=== PATIENT | female | born 1960 | race African-American/Black ===

== ENCOUNTER 2017-05-24 18:22 | Inpatient (IN) | payer OTHER ==
[~2017-05-24] VITALS: Ht 172.7 cm; Wt 83.0 kg
[~2017-05-24 18:22] MED LIST: METF850T OR; Z.0.NO CURRENT MEDS; lancets; test strips
[2017-05-24 18:25] VITALS: BP 134/83; PULSE 101; RESP 16; TEMP 98.5; O2SAT 97
[2017-05-24 19:15] VITALS: BP_SYST 112; BP_SYST 121; BP_DIAS 67; BP_DIAS 79; RESP 16; RESP 18
[2017-05-24] MEDS ORDERED: SODIUM CHLOR 0.9% 1000 ML INJ 1,000 ML IV ONE (19:22)
[2017-05-24] MEDS ORDERED: ONDANSETRON HCL 4 MG/2 ML VIAL IVP ONE (19:30)
[2017-05-24] MEDS ORDERED: SODIUM CHLORIDE 0.9% FLUSH 10 ML FLUSH IVF PRN (19:30)
[2017-05-24 19:47] VITALS: BP_SYST 111; BP_SYST 112; BP_SYST 137; BP_DIAS 65; BP_DIAS 73; BP_DIAS 79; PULSE 83; RESP 16; O2SAT 100
--- NOTE | 2017-05-24 20:09 | RADRPT ---
EXAM DATE/TIME: 05/24/2017 19:39 [facility] COMPARISON: No previous studies available for comparison. INDICATIONS : Dizziness and weakness. RADIATION DOSE: 56.35 CTDIvol (mGy) MEDICAL HISTORY : None SURGICAL HISTORY : Tubal ligation. ENCOUNTER: Initial ACUITY: 1 day PAIN SCALE: 0/10 LOCATION: cranial TECHNIQUE: Multiple contiguous axial images were obtained of the head. Using automated exposure control and adj ustment of the mA and/or kV according to patient size, radiation dose was kept as low as reasonably a chievable to obtain optimal diagnostic quality images. DICOM format image data is available electro nically for review and comparison. FINDINGS: CEREBRUM: The ventricles are normal for age. No evidence of midline shift, mass lesion, hemorrhage or acute in farction. No extra-axial fluid collections are seen. POSTERIOR FOSSA: The cerebellum and brainstem are intact. The 4th ventricle is midline. The cerebellopontine angle i s unremarkable. EXTRACRANIAL: The visualized portion of the orbits is intact. SKULL: The calvaria is intact. No evidence of skull fracture. CONCLUSION: No acute intracranial abnormality is identified. Cali Ho MD on May 24, 2017 at 20:06 Board Certified Radiologist. This report was verified electronically.
--- NOTE | 2017-05-24 20:23 | RADRPT ---
EXAM DATE/TIME: 05/24/2017 20:00 [facility] COMPARISON: No previous studies available for comparison. INDICATIONS : Chest discomfort. Weakness. MEDICAL HISTORY : None. SURGICAL HISTORY : None. ENCOUNTER: Initial ACUITY: 1 day PAIN SCORE: 6/10 LOCATION: Bilateral chest FINDINGS: Portable AP view of the chest demonstrates a normal-sized cardiac silhouette. There is marked underin flation with atelectasis at the lung bases. No pleural effusion or pneumothorax is identified. Bones and soft tissues demonstrate no acute finding. EKG lines overlie the patient. CONCLUSION: Marked underinflation with atelectasis at the bases. Otherwise, no acute finding is identified given the technique. Cali Ho MD on May 24, 2017 at 20:21 Board Certified Radiologist. This report was verified electronically.
[2017-05-24 20:26] LABS: AUTOMATED NEUTROPHIL # 3.9 TH/MM3 (1.8-7.7); BASOPHIL % 0.5 % (0.0-2.0); HEMATOCRIT 45.7 % (35.0-46.0); HEMOGLOBIN 14.7 GM/DL (11.6-15.3); LYMPH % 15.6 % (9.0-44.0); LYMPHOCYTE # 0.9 TH/MM3 (1.0-4.8); MEAN CELL VOLUME 92.6 FL (80.0-100.0); MEAN CORPUSCULAR HEMOGLOBIN 29.7 PG (27.0-34.0); MEAN CORPUSCULAR HGB CONC 32.1 % (32.0-36.0); MEAN PLATELET VOLUME 9.7 FL (7.0-11.0); MONO % 12.4 % (0.0-8.0); MONOCYTE # 0.7 TH/MM3 (0-0.9); NEUT % 71.5 % (16.0-70.0); PLATELET COUNT 279 TH/MM3 (150-450); RED BLOOD COUNT 4.94 MIL/MM3 (4.00-5.30); RED CELL DISTRIBUTION WIDTH 13.8 % (11.6-17.2); WHITE BLOOD COUNT 5.5 TH/MM3 (4.0-11.0)
[2017-05-24 20:45] LABS: PROTHROMBIN TIME - PATIENT 9.8 SEC (9.8-11.6)
--- NOTE | 2017-05-24 20:45 | PD ---
HPI Chief Complaint: General Weakness Time Seen by Provider: 18:44 Travel History International Travel<30 days: No Contact w/Intl Traveler<30days: No Traveled to known affect area: No History of Present Illness HPI 56 YO F with PMH of DMT2 presents to the ED for evaluation of episodic weakness of the right hand, gait disturbance and dizziness throughout the course of the day. No alleviating or exacerbating factors reported. Patient denies headache , vision changes, chest pain, palpitations, shortness of breath, abdominal pain , nausea, vomiting, dysuria. She states that she is no longer taking medications for diabetes as she lost 25 pounds and last A1c was normal. She states that she is no longer checking her blood sugars. PFSH Past Medical History Anemia: Yes Ectopic : Yes (1995) Tubal Ligation: Yes Past Surgical History Section: Yes (X3: 1984, 1985, 1993) Gynecologic Surgery: Yes (TUBAL REANASTOMOSIS: 1993) Social History Alcohol Use: No Tobacco Use: No Substance Use: No Allergies-Medications (Allergen,Severity, Reaction): Coded Allergies: clindamycin (Verified Allergy, Intermediate, Rash, 05/24/17) Reported Meds & Prescriptions Reported Meds & Active Scripts Active Review of Systems Except as stated in HPI: all other systems reviewed are Neg Physical Exam Narrative GENERAL: Well-nourished, well-developed female no acute distress. SKIN: Focused skin assessment warm/dry. HEAD: Normocephalic. EYES: No scleral icterus. No injection or drainage. NECK: Supple, trachea midline. No JVD or lymphadenopathy. CARDIOVASCULAR: Regular rate and rhythm without murmurs, gallops, or rubs. RESPIRATORY: Breath sounds equal bilaterally. No accessory muscle use. GASTROINTESTINAL: Abdomen soft, non-tender, nondistended. MUSCULOSKELETAL: No cyanosis, or edema. NEUROLOGICAL: Awake and alert. Cranial nerves II through XII intact. Motor and sensory grossly within normal limits. Five out of 5 muscle strength in all muscle groups. Normal speech. BACK: Nontender without obvious deformity. No CVA tenderness. Data Data Last Documented VS Vital Signs Date Time Temp Pulse Resp B/P (MAP) Pulse Ox O2 Delivery O2 Flow Rate FiO2 05/24/17 22:59 85 16 126/70 (88) 98 Room Air 05/24/17 18:25 98.5 Orders Orders Electrocardiogram (05/24/17 19:22) Complete Blood Count With Diff (05/24/17 19:22) Comprehensive Metabolic Panel (05/24/17 19:22) Magnesium (Mg) (05/24/17 19:22) Ckmb (Isoenzyme) Profile (05/24/17 19:22) Troponin I (05/24/17 19:22) Act Partial Throm Time (Ptt) (05/24/17:22) Prothrombin Time / Inr (Pt) (05/24/17:22) Urinalysis - C+S If Indicated (05/24/17 19:22) Chest, Single Ap (05/24/17 19:22) Ct Brain W/O Iv Contrast(Rout) (05/24/17:22) Ecg Monitoring (05/24/17:22) Iv Access Insert/Monitor (05/24/17:22) Oximetry (05/24/17:22) Ondansetron Inj (Zofran Inj) (05/24/17 19:30) Sodium Chloride 0.9% Flush (Ns Flush) (05/24/17 19:30) Sodium Chlor 0.9% 1000 Ml Inj (Ns 1000 M (05/24/17 19:22) Thyroid Stimulating Hormone (05/24/17 19:22) Orthostatic Vital Signs (05/24/17 19:22) Blood Glucose (05/24/17 21:42) CKMB (05/24/17 21:30) CKMB% (05/24/17 21:30) Insulin Human Regular Inj (Novolin R Inj (05/24/17 22:45) Admit Order (Ed Use Only) (05/24/17 23:22) Labs Laboratory Tests Test 05/24/17 19:53 05/24/17 21:30 05/24/17 22:55 White Blood Count 5.5 TH/MM3 Red Blood Count 4.94 MIL/MM3 Hemoglobin 14.7 GM/DL Hematocrit 45.7 % Mean Corpuscular Volume 92.6 FL Mean Corpuscular Hemoglobin 29.7 PG Mean Corpuscular Hemoglobin Concent 32.1 % Red Cell Distribution Width 13.8 % Platelet Count 279 TH/MM3 Mean Platelet Volume 9.7 FL Neutrophils (%) (Auto) 71.5 % Lymphocytes (%) (Auto) 15.6 % Monocytes (%) (Auto) 12.4 % Eosinophils (%) (Auto) 0.0 % Basophils (%) (Auto) 0.5 % Neutrophils # (Auto) 3.9 TH/MM3 Lymphocytes # (Auto) 0.9 TH/MM3 Monocytes # (Auto) 0.7 TH/MM3 Eosinophils # (Auto) 0.0 TH/MM3 Basophils # (Auto) 0.0 TH/MM3 CBC Comment DIFF FINAL Differential Comment Prothrombin Time 9.8 SEC Prothromb Time International Ratio 1.0 RATIO Activated Partial Thromboplast Time 19.5 SEC Blood Urea Nitrogen 17 MG/DL Creatinine 1.26 MG/DL Random Glucose 624 MG/DL Total Protein 9.1 GM/DL Albumin 4.2 GM/DL Calcium Level 10.7 MG/DL Magnesium Level 2.2 MG/DL Alkaline Phosphatase 178 U/L Aspartate Amino Transf (AST/SGOT) 15 U/L Alanine Aminotransferase (ALT/SGPT) 21 U/L Total Bilirubin 0.3 MG/DL Sodium Level 138 MEQ/L Potassium Level 4.5 MEQ/L Chloride Level 101 MEQ/L Carbon Dioxide Level 29.4 MEQ/L Anion Gap 8 MEQ/L Estimat Glomerular Filtration Rate 53 ML/MIN Total Creatine Kinase 177 U/L Creatine Kinase MB 1.6 NG/ML Troponin I LESS THAN 0.02 NG/ML Thyroid Stimulating Hormone 3rd Gen 0.455 uIU/ML Urine Color LIGHT-YELLOW Urine Turbidity CLEAR Urine pH 5.0 Urine Specific Jeannette 1.039 Urine Protein NEG mg/dL Urine Glucose (UA) 1000 mg/dL Urine Ketones 10 mg/dL Urine Occult Blood NEG Urine Nitrite NEG Urine Bilirubin NEG Urine Urobilinogen LESS THAN 2.0 MG/DL Urine Leukocyte Esterase NEG Urine RBC 1 /hpf Urine WBC LESS THAN 1 /hpf Microscopic Urinalysis Comment CULT NOT INDICATED MDM Medical Decision Making Medical Screen Exam Complete: Yes Emergency Medical Condition: Yes Differential Diagnosis Metabolic drainage versus dehydration versus anemia versus hypoglycemia versus TIA versus less likely ICH versus other Narrative Course 56-year-old female presents to ED for evaluation of episodic weakness in the right hand, difficulties with gait and dizziness throughout the course the day. Patient can identify no alleviating or exacerbating factors. She's never had an episode like this in the past. Recently stopped all diabetic medications secondary to 25 pound weight loss and normalized hemoglobin A1c. Vitals reviewed. Physical exam is reassuring. IV was established. Patient was administered 1 L normal saline, 4 mg Zofran. EKG rate 83, sinus rhythm. VA interval 120, QRS 98, QTc 382. Normal axis. Nonspecific ST elevation, likely early repolarization. Reviewed by Dr. Anaya. CXR:. Under patient with atelectasis at the bases, no acute findings. CT brain: No acute intercranial abnormality identified per radiology read. Coags: INR 1.0. UA pending 05/24/17 19:53 05/24/17 21:30 Total Protein 9.1 H, Albumin 4.2, Calcium Level 10.7 H, Magnesium Level 2.2, Alkaline Phosphatase 178 H, Aspartate Amino Transf (AST/SGOT) 15, Alanine Aminotransferase (ALT/SGPT) 21, Total Bilirubin 0.3 On recheck the patient is sleeping. She was administered 6 units and insulin IV. I discussed the workup with the patient. I recommended that she be admitted for evaluation of hyperglycemia, possible TIA. She is agreeable with this plan. Call placed to [facility]. Patient signed out to Dr. Quispe at end of shift. Aletha Castellanos May 24, 2017 20:45
--- NOTE | 2017-05-24 21:07 | EKG ---
Date Performed: 05/24/2017 Time Performed: 18:49:48 PTAGE: 56 years EKG: Sinus rhythm NONSPECIFIC ST ELEVATION, CONSIDER EARLY REPOLARIZATION BORDERLINE ECG PREVIOUS TRACING : 01/22/2011 09.00 Compared to previous tracing, ST changes are now more prono unced. DOCTOR: Bairon Escalante Interpretating Date/Time 05/24/2017 21:06:19
[2017-05-24 22:07] LABS: ALBUMIN 4.2 GM/DL (3.4-5.0); ALT (GPT) 21 U/L (10-53); AST (GOT) 15 U/L (15-37); BICARBONATE 29.4 MEQ/L (21.0-32.0); BLOOD UREA NITROGEN 17 MG/DL (7-18); CALCIUM 10.7 MG/DL (8.5-10.1); CHLORIDE 101 MEQ/L (98-107); CREATININE 1.26 MG/DL (0.50-1.00); GLOMERULAR FILTRATION RATE 53 ML/MIN (>89); MAGNESIUM 2.2 MG/DL (1.5-2.5); SODIUM (NA) 138 MEQ/L (136-145)
[2017-05-24 22:17] LABS: ALKALINE PHOSPHATASE 178 U/L (45-117); TROPONIN I LESS THAN 0.02 NG/ML (0.02-0.05)
[2017-05-24 22:37] LABS: TOTAL BILIRUBIN ADULT 0.3 MG/DL (0.2-1.0); TOTAL PROTEIN 9.1 GM/DL (6.4-8.2)
[2017-05-24 22:38] LABS: GLUCOSE,RANDOM 624 MG/DL (74-106)
[2017-05-24] MEDS ORDERED: INSULIN HUMAN REGULAR 1,000 UNITS/10 ML VIAL IV PUSH ONE (22:45)
[2017-05-24 22:59] VITALS: BP 126/70; PULSE 85; RESP 16; O2SAT 98
--- NOTE | 2017-05-24 23:25 | PD ---
Physical Exam Date Seen by Provider: May 24, 2017 Time Seen by Provider: 20:00 Narrative I, Dr. Iniguez, have reviewed the advance practice practitioner's documentation and am in agreement, met with the patient face to face, made the diagnosis, and the medical decision making was done by me. *My assessment and Findings: Patient seen and evaluated with PA, please see PA note for further details. Here with ataxia, right arm weakness, dropping things today, dizziness. She states that some of the symptoms are subsiding. I do not see any focal neurological deficits on my evaluation now. She apparently has history of diabetes but recently has been told to go off her diabetes medications because of weight loss and improvement in sugars. Laboratory Tests Test 05/24/17 19:53 05/24/17 21:30 05/24/17 22:55 Neutrophils (%) (Auto) 71.5 % (16.0-70.0) Monocytes (%) (Auto) 12.4 % (0.0-8.0) Lymphocytes # (Auto) 0.9 TH/MM3 (1.0-4.8) Activated Partial Thromboplast Time 19.5 SEC (24.3-30.1) Creatinine 1.26 MG/DL (0.50-1.00) Random Glucose 624 MG/DL (74-106) Total Protein 9.1 GM/DL (6.4-8.2) Calcium Level 10.7 MG/DL (8.5-10.1) Alkaline Phosphatase 178 U/L (45-117) Estimat Glomerular Filtration Rate 53 ML/MIN (>89) Troponin I LESS THAN 0.02 NG/ML Last [address] 05/24/171921 Signed Impressions: Service Date/Time: Wednesday, May 24, 2017 19:39 - CONCLUSION: No acute intracranial abnormality is identified. Cali Ho MD Chest X-Ray 05/24/171921 Signed Impressions: Service Date/Time: Wednesday, May 24, 2017 20:00 - CONCLUSION: Marked underinflation with atelectasis at the bases. Otherwise, no acute finding is identified given the technique. Cali Ho MD Initial CAT scan did not show any signs of acute intracranial processes. Patient does not currently have focal neurological deficits. Lab work shows significant hyperglycemia and IV fluids and insulin was given in the ER. At this point, my plan would be to admit her for further evaluation for possible TIA. Case is discussed with Dr. Tran for admission. Data Data Last Documented VS Vital Signs Date Time Temp Pulse Resp B/P (MAP) Pulse Ox O2 Delivery O2 Flow Rate FiO2 05/24/17 22:59 85 16 126/70 (88) 98 Room Air 05/24/17 18:25 98.5 Orders Orders Electrocardiogram (05/24/17 19:22) Complete Blood Count With Diff (05/24/17 19:22) Comprehensive Metabolic Panel (05/24/17 19:22) Magnesium (Mg) (05/24/17 19:22) Ckmb (Isoenzyme) Profile (05/24/17:22) Troponin I (05/24/17:) Act Partial Throm Time (Ptt) (05/24/17:22) Prothrombin Time / Inr (Pt) (05/24/17:22) Urinalysis - C+S If Indicated (05/24/17:22) Chest, Single Ap (05/24/17 19:22) Ct Brain W/O Iv Contrast(Rout) (05/24/17 19:22) Ecg Monitoring (05/24/17:22) Iv Access Insert/Monitor (05/24/17:22) Oximetry (05/24/17:22) Ondansetron Inj (Zofran Inj) (05/24/17 19:30) Sodium Chloride 0.9% Flush (Ns Flush) (05/24/17 19:30) Sodium Chlor 0.9% 1000 Ml Inj (Ns 1000 M (05/24/17 19:22) Thyroid Stimulating Hormone (05/24/17 19:22) Orthostatic Vital Signs (05/24/17 19:22) Blood Glucose (05/24/17 21:42) CKMB (05/24/17 21:30) CKMB% (05/24/17 21:30) Insulin Human Regular Inj (Novolin R Inj (05/24/17 22:45) Admit Order (Ed Use Only) (05/24/17 23:22) Labs Laboratory Tests Test 05/24/17 19:53 05/24/17 21:30 05/24/17 22:55 White Blood Count 5.5 TH/MM3 Red Blood Count 4.94 MIL/MM3 Hemoglobin 14.7 GM/DL Hematocrit 45.7 % Mean Corpuscular Volume 92.6 FL Mean Corpuscular Hemoglobin 29.7 PG Mean Corpuscular Hemoglobin Concent 32.1 % Red Cell Distribution Width 13.8 % Platelet Count 279 TH/MM3 Mean Platelet Volume 9.7 FL Neutrophils (%) (Auto) 71.5 % Lymphocytes (%) (Auto) 15.6 % Monocytes (%) (Auto) 12.4 % Eosinophils (%) (Auto) 0.0 % Basophils (%) (Auto) 0.5 % Neutrophils # (Auto) 3.9 TH/MM3 Lymphocytes # (Auto) 0.9 TH/MM3 Monocytes # (Auto) 0.7 TH/MM3 Eosinophils # (Auto) 0.0 TH/MM3 Basophils # (Auto) 0.0 TH/MM3 CBC Comment DIFF FINAL Differential Comment Prothrombin Time 9.8 SEC Prothromb Time International Ratio 1.0 RATIO Activated Partial Thromboplast Time 19.5 SEC Blood Urea Nitrogen 17 MG/DL Creatinine 1.26 MG/DL Random Glucose 624 MG/DL Total Protein 9.1 GM/DL Albumin 4.2 GM/DL Calcium Level 10.7 MG/DL Magnesium Level 2.2 MG/DL Alkaline Phosphatase 178 U/L Aspartate Amino Transf (AST/SGOT) 15 U/L Alanine Aminotransferase (ALT/SGPT) 21 U/L Total Bilirubin 0.3 MG/DL Sodium Level 138 MEQ/L Potassium Level 4.5 MEQ/L Chloride Level 101 MEQ/L Carbon Dioxide Level 29.4 MEQ/L Anion Gap 8 MEQ/L Estimat Glomerular Filtration Rate 53 ML/MIN Total Creatine Kinase 177 U/L Creatine Kinase MB 1.6 NG/ML Troponin I LESS THAN 0.02 NG/ML Thyroid Stimulating Hormone 3rd Gen 0.455 uIU/ML [facility] Medical Record Reviewed: Yes Supervised Visit with ORALIA: Yes Diagnosis Primary Impression: TIA (transient ischemic attack) Additional Impression: Hyperglycemia Admitting Information Admitting Physician Requests: Kristi Lewis MD May 24, 2017 23:25
[2017-05-24] MEDS ORDERED: SENNOSIDES 8.6 MG TAB PO PRN (23:30)
[2017-05-24] MEDS ORDERED: DEXTROSE 50% IN WATER 50 ML VIAL(D50) IV PUSH PRN (23:30)
[2017-05-24] MEDS ORDERED: ACETAMINOPHEN 325 MG TAB PO PRN (23:30)
[2017-05-24] MEDS ORDERED: LACTULOSE SYRUP 20 GM/30 ML CUP PO PRN (23:30)
[2017-05-24] MEDS ORDERED: ACETAMINOPHEN/HYDROcodone 325 MG/10 MG TAB PO PRN (23:30)
[2017-05-24] MEDS ORDERED: GLUCAGON 1 MG/ML VIAL OTHER PRN (23:30)
[2017-05-24] MEDS ORDERED: SODIUM CHLORIDE 0.9% FLUSH 10 ML FLUSH IV FLUSH PRN (23:30)
[2017-05-24] MEDS ORDERED: MAGNESIUM HYDROXIDE SUSP 30 ML CUP PO PRN (23:30)
[2017-05-24] MEDS ORDERED: ACETAMINOPHEN/HYDROcodone 325 MG/5 MG TAB PO PRN (23:30)
[2017-05-24] MEDS ORDERED: BISACODYL 10 MG SUPP RECTAL PRN (23:30)
[2017-05-24] MEDS ORDERED: ONDANSETRON HCL 4 MG/2 ML VIAL IVP PRN (23:30)
--- NOTE | 2017-05-24 23:31 | HHI.HP ---
HPI Service [facility] Hospitalists Primary Care Physician No Primary Care Physician Admission Diagnosis Hyperglycemia/general weakness/ataxia/possible TIA Diagnoses: (1) TIA (transient ischemic attack) Diagnosis: Principal (2) DAVE (acute kidney injury) Diagnosis: Principal (3) DM (diabetes mellitus) Diagnosis: Principal Travel History International Travel<30 Days: No Contact w/Intl Traveler <30 Da: No Traveled to Known Affected Are: No History of Present Illness This is a 56-year-old female with a PMH of DM who presents the ER with complaints of dizziness and right hand weakness starting at approx 2pm this afternoon. States she was unable to hold objects in right hand because they kept "falling out". Denies h/o similar symptoms. No facial droop, slurred speech or numbness. 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 On arrival , BP 134/83, HR 101, O2 sat 97% on RA, Afebrile. CBC essentially unremarkable. Creatinine 1.26, previously 0.97 on 12/02/10. BS 624. Calcium 10.7. Troponin negative. INR 1.0. UA negative. CXR with underinflation and atelectasis. CT Head negative. S/p Insulin in ER. States she was taken off antihyperglycemics in 2010. Was seen by PCP in [place] from [phone], states no issues w/ DM until now. Review of Systems Except as stated in HPI: all other systems reviewed are Neg ROS: 14 point review of systems otherwise negative. Past Family Social History Past Medical History PMH: DM Past Surgical History PAST SURGICAL HISTORY: , Tubal Reanastomosis Allergies: Coded Allergies: clindamycin (Verified Allergy, Intermediate, Rash, 05/24/17) Family History PAST FAMILY HISTORY: Reviewed. No h/o DM or CAD Social History PAST SOCIAL HISTORY: Negative for alcohol, tobacco or drugs. Physical Exam Vital Signs Vital Signs Date Time Temp Pulse Resp B/P (MAP) Pulse Ox O2 Delivery O2 Flow Rate FiO2 05/24/17 22:59 85 16 126/70 (88) 98 Room Air 05/24/17 19:47 83 16 100 Room Air 05/24/17 19:47 83 16 121/67 (85) 89 16 112/79 (90) 05/24/17 19:15 83 16 121/67 (85) 93 18 112/79 (90) 05/24/17 18:25 98.5 101 16 134/83 (100) 97 Room Air Physical Exam PE: GENERAL: Very pleasant middle-aged black female in no acute distress. at bedside. HEENT: PERRLA, EOMI. No scleral icterus or conjunctival pallor. No lid lag or facial droop. CARDIOVASCULAR: Regular rate and rhythm. No obvious murmurs to auscultation. No chest tenderness to palpation. RESPIRATORY: No obvious rhonchi or wheezing. Clear to auscultation. Breath sounds equal bilaterally. GASTROINTESTINAL: Abdomen soft, non-tender, nondistended. BS normal. MUSCULOSKELETAL: Extremities without clubbing, cyanosis, or edema. No obvious deformities. NEUROLOGICAL: Awake, alert and oriented x4. No focal neurologic deficits. Moving both upper and lower extremities spontaneously. Strength 5/5 all extremities. Laboratory Laboratory Tests Test 05/24/17 19:53 05/24/17 21:30 05/24/17 22:55 White Blood Count 5.5 Red Blood Count 4.94 Hemoglobin 14.7 Hematocrit 45.7 Mean Corpuscular Volume 92.6 Mean Corpuscular Hemoglobin 29.7 Mean Corpuscular Hemoglobin Concent 32.1 Red Cell Distribution Width 13.8 Platelet Count 279 Mean Platelet Volume 9.7 Neutrophils (%) (Auto) 71.5 Lymphocytes (%) (Auto) 15.6 Monocytes (%) (Auto) 12.4 Eosinophils (%) (Auto) 0.0 Basophils (%) (Auto) 0.5 Neutrophils # (Auto) 3.9 Lymphocytes # (Auto) 0.9 Monocytes # (Auto) 0.7 Eosinophils # (Auto) 0.0 Basophils # (Auto) 0.0 CBC Comment DIFF FINAL Differential Comment Prothrombin Time 9.8 Prothromb Time International Ratio 1.0 Activated Partial Thromboplast Time 19.5 Blood Urea Nitrogen 17 Creatinine 1.26 Random Glucose 624 Total Protein 9.1 Albumin 4.2 Calcium Level 10.7 Magnesium Level 2.2 Alkaline Phosphatase 178 Aspartate Amino Transf (AST/SGOT) 15 Alanine Aminotransferase (ALT/SGPT) 21 Total Bilirubin 0.3 Sodium Level 138 Potassium Level 4.5 Chloride Level 101 Carbon Dioxide Level 29.4 Anion Gap 8 Estimat Glomerular Filtration Rate 53 Total Creatine Kinase 177 Creatine Kinase MB 1.6 Troponin I LESS THAN 0.02 Thyroid Stimulating Hormone 3rd Gen 0.455 Result Diagram: 05/24/17195205/24/172129 Caprini VTE Risk Assessment Caprini VTE Risk Assessment: No/Low Risk (score <= 1) Caprini Risk Assessment Model Point Value = 1 Point Value = 2 Point Value = 3 Point Value = 5 Age 41-60 Minor surgery BMI > 25 kg/m2 Swollen legs Varicose veins or History of unexplained or recurrent spontaneous Oral contraceptives or hormone replacement Sepsis (< 1 month) Serious lung disease, including pneumonia (< 1 month) Abnormal pulmonary function Acute myocardial infarction Congestive heart failure (< 1 month) History of inflammatory bowel disease Medical patient at bed rest Age 61-74 Arthroscopic surgery Major open surgery (> 45 min) Laparoscopic surgery (> 45 min) Malignancy Confined to bed (> 72 hours) Immobilizing plaster cast Central venous access Age >= 75 History of VTE Family history of VTE Factor V Leiden Prothrombin [id number] Lupus anticoagulant Anticardiolipin antibodies Elevated serum homocysteine Heparin-induced thrombocytopenia Other congenital or acquired thrombophilia Stroke (< 1 month) Elective arthroplasty Hip, pelvis, or leg fracture Acute spinal cord injury (< 1 month) Prophylaxis Regimen Total Risk Factor Score Risk Level Prophylaxis Regimen 0-1 Low Early ambulation 2 Moderate Order ONE of the following: *Sequential Compression Device (SCD) *Heparin 5000 units SQ BID 3-4 Higher Order ONE of the following medications: *Heparin 5000 units SQ TID *Enoxaparin/Lovenox 40 mg SQ daily (WT < 150 kg, CrCl > 30 mL/min) *Enoxaparin/Lovenox 30 mg SQ daily (WT < 150 kg, CrCl > 10-29 mL/min) *Enoxaparin/Lovenox 30 mg SQ BID (WT < 150 kg, CrCl > 30 mL/min) AND/OR *Sequential Compression Device (SCD) 5 or more Highest Order ONE of the following medications: *Heparin 5000 units SQ TID (Preferred with Epidurals) *Enoxaparin/Lovenox 40 mg SQ daily (WT < 150 kg, CrCl > 30 mL/min) *Enoxaparin/Lovenox 30 mg SQ daily (WT < 150 kg, CrCl > 10-29 mL/min) *Enoxaparin/Lovenox 30 mg SQ BID (WT < 150 kg, CrCl > 30 mL/min) AND *Sequential Compression Device (SCD) Assessment and Plan Problem List: (1) TIA (transient ischemic attack) ICD Code: G45.9 - Transient cerebral ischemic attack, unspecified Status: Acute (2) DAVE (acute kidney injury) ICD Code: N17.9 - Acute kidney failure, unspecified (3) DM (diabetes mellitus) ICD Code: E11.9 - Type 2 diabetes mellitus without complications Assessment and Plan A/P: 1. TIA: Acute onset of RUE weakness, unable to grasp objects, symptoms lasted approx 4hrs and resolved spontaneously, no recurrent symptoms. R/o TIA. CT Head w/ no acute findings, images reviewed by me. Check MRI/MRA to eval for possible ischemia. Check Echo to eval for possible embolic event. Check Lipid Profile, start ASA and Statin. Consult Neurology for further recommendations. PT for eval/tx. 2. DAVE: Creatinine 1.26, produces 0.97 12/02/10. UA negative for UTI. IVF for hydration, repeat labs in a.m. 3. DM: Uncontrolled. Previous h/o DM on antihyperglycemics, however was discontinued after weight loss, now w/ hyperglycemic event, BS 624. S/p Insulin in ER. Start Sliding Scale w/ Accu-Checks. Check Hgb A1c. 4. DVT Prophylaxis: SCD/Teds. 5. Social work for d/c planning as needed. 6. Case discussed w/ ER physician at length, labs/records/imaging reviewed by me. Sanjuanita Tran MD May 24, 2017 23:30
[2017-05-24 23:32] LABS: BILIRUBIN, URINE NEG (NEG); BLOOD, URINE NEG (NEG); GLUCOSE,URINE 1000 mg/dL (NEG); KETONE, URINE 10 mg/dL (NEG); NITRITE,URINE NEG (NEG); URINE COLOR LIGHT-YELLOW (YELLW/STRAW); URINE LEUKOCYTE ESTERASE NEG (NEG)
[2017-05-24] MEDS: SODIUM CHLOR 0.9% 1000 ML INJ 1,000 ML IV SCH (23:57)
[2017-05-25 04:00] VITALS: BP 105/55; PULSE 95; RESP 17; TEMP 98.2; O2SAT 97
[2017-05-25] MEDS ORDERED: INSULIN HUMAN REGULAR 1,000 UNITS/10 ML VIAL IV PUSH ONE ×2 (04:45→20:30)
[2017-05-25] MEDS: INSULIN ASPART SUPPLEMENTAL SCALE SQ SCH ×4 (06:23→21:00)
[2017-05-25 06:46] LABS: AUTOMATED NEUTROPHIL # 3.9 TH/MM3 (1.8-7.7); BASOPHIL # 0.1 TH/MM3 (0-0.2); BASOPHIL % 0.9 % (0.0-2.0); EOSINOPHIL % 0.6 % (0.0-4.0); HEMATOCRIT 43.6 % (35.0-46.0); HEMOGLOBIN 14.4 GM/DL (11.6-15.3); LYMPH % 19.9 % (9.0-44.0); LYMPHOCYTE # 1.1 TH/MM3 (1.0-4.8); MEAN CELL VOLUME 91.5 FL (80.0-100.0); MEAN CORPUSCULAR HEMOGLOBIN 30.2 PG (27.0-34.0); MEAN CORPUSCULAR HGB CONC 33.1 % (32.0-36.0); MEAN PLATELET VOLUME 8.9 FL (7.0-11.0); MONO % 10.6 % (0.0-8.0); MONOCYTE # 0.6 TH/MM3 (0-0.9); PLATELET COUNT 263 TH/MM3 (150-450); RED BLOOD COUNT 4.77 MIL/MM3 (4.00-5.30); RED CELL DISTRIBUTION WIDTH 13.6 % (11.6-17.2); WHITE BLOOD COUNT 5.8 TH/MM3 (4.0-11.0)
[2017-05-25 07:19] LABS: ALBUMIN 4.4 GM/DL (3.4-5.0); ALKALINE PHOSPHATASE 142 U/L (45-117); ALT (GPT) 22 U/L (10-53); AST (GOT) 13 U/L (15-37); BICARBONATE 30.5 MEQ/L (21.0-32.0); BLOOD UREA NITROGEN 15 MG/DL (7-18); CALCIUM 10.6 MG/DL (8.5-10.1); CHLORIDE 103 MEQ/L (98-107); CHOLESTEROL 191 MG/DL (120-200); CHOLESTEROL/ HDL RATIO 2.24 RATIO; CREATININE 1.39 MG/DL (0.50-1.00); GLOMERULAR FILTRATION RATE 47 ML/MIN (>89); GLUCOSE,RANDOM 406 MG/DL (74-106); HDL CHOLESTEROL 84.9 MG/DL (40.0-60.0); LDL CHOLESTEROL 90 MG/DL (0-99); SODIUM (NA) 142 MEQ/L (136-145); TOTAL BILIRUBIN ADULT 0.3 MG/DL (0.2-1.0); TOTAL PROTEIN 9.3 GM/DL (6.4-8.2); TRIGLYCERIDES 79 MG/DL (42-150)
[2017-05-25 07:59] VITALS: BP 111/60; PULSE 82; PULSE 84; RESP 16; TEMP 98; O2SAT 96
[2017-05-25] MEDS: PRAVASTATIN SOD 40 MG TAB PO SCH (08:11)
[2017-05-25] MEDS: SODIUM CHLORIDE 0.9% FLUSH 10 ML FLUSH IV FLUSH SCH ×2 (08:11→21:00)
[2017-05-25] MEDS: SODIUM CHLOR 0.9% 1000 ML INJ 1,000 ML IV SCH ×2 (08:12→19:26)
[2017-05-25] MEDS: DOCUSATE SODIUM 50 MG/SENNA 8.6 MG TAB PO SCH ×2 (08:12→21:00)
[2017-05-25] MEDS: ASPIRIN EC 81 MG TABEC PO SCH (08:12)
--- NOTE | 2017-05-25 09:49 | RADRPT ---
EXAM DATE/TIME: 05/25/2017 09:12 [facility] COMPARISON: MRI BRAIN W/O CONTRAST, May 25, 2017, 9:12. INDICATIONS : Right sided weakness. MEDICAL HISTORY : Diabetes mellitus type 2. SURGICAL HISTORY : section. Tubal ligation. ENCOUNTER: Initial ACUITY: 1 day PAIN SCORE: 0/10 LOCATION: cranial Please note a normal MRA of the brain does not entirely exclude the possibility of a small aneurysm, nor the possibility of distal intracranial vessel disease. TECHNIQUE: 3D time of flight MRA was performed. Source images, multiplanar STS MIP, and 3D volume MIP reconstru ctions were reviewed. FINDINGS: There is excellent visualization of the major intracranial arteries out to the second-order branch ve ssels. There is no evidence for aneurysm, vessel truncation or stenosis, and no evidence for vascula r malformation. CONCLUSION: Negative MRA. Cali Silvestre MD on May 25, 2017 at 9:46 Board Certified Radiologist. This report was verified electronically.
--- NOTE | 2017-05-25 10:06 | RADRPT ---
EXAM DATE/TIME: 05/25/2017 09:12 [facility] COMPARISON: No previous studies available for comparison. INDICATIONS : Right sided weakness. MEDICAL HISTORY : Diabetes mellitus type 2. SURGICAL HISTORY : section. Tubal ligation. ENCOUNTER: Initial ACUITY: 1 day PAIN SCORE: 0/10 LOCATION: cranial TECHNIQUE: Multiplanar, multisequence MRI of the brain was performed without contrast. FINDINGS: CEREBRUM: The ventricles are normal for age. No evidence of midline shift, mass lesion, hemorrhage or acute in farction. No extraaxial fluid collections are seen. The pituitary gland and suprasellar cistern are normal in configuration. WHITE MATTER: There are a few scattered small focal areas of increased signal seen within the cerebral white matter . POSTERIOR FOSSA: The cerebellum and brainstem are intact. The 4th ventricle is midline. The cerebellopontine angle is unremarkable. The cerebellar tonsils are normal in position. DIFFUSION IMAGING: No focal areas of restricted diffusion are seen. No evidence of acute infarction. EXTRACRANIAL: The visualized portions of the orbits and paranasal sinuses are unremarkable. CONCLUSION: 1. No acute intracranial abnormalities seen. 2. There are few scattered areas of focal demyelination. These are nonspecific. It could be secondary to small vessel ischemic change versus other demyelinating conditions. Cali Silvestre MD on May 25, 2017 at 10:03 Board Certified Radiologist. This report was verified electronically.
--- NOTE | 2017-05-25 10:47 | HHI.PR ---
Subjective Remarks Follow up TIA, diabetes. Patient states that her weakness has improved. No chest pain, dyspnea, headache, vision changes. Objective Vitals Vital Signs Date Time Temp Pulse Resp B/P (MAP) Pulse Ox O2 Delivery O2 Flow Rate FiO2 05/25/17 07:59 84 05/25/17 07:59 98.0 82 16 111/60 (77) 96 05/25/17 04:02 05/25/17 04:00 98.2 95 17 105/55 (72) 97 05/24/17 22:59 85 16 126/70 (88) 98 Room Air 05/24/17 19:47 83 16 100 Room Air 05/24/17 19:47 83 16 121/67 (85) 89 16 112/79 (90) 05/24/17 19:15 83 16 121/67 (85) 93 18 112/79 (90) 05/24/17 18:25 98.5 101 16 134/83 (100) 97 Room Air I/O 05/24/17 05/24/17 05/24/17 05/25/17 05/25/17 05/25/17 07:00 15:00 23:00 07:00 15:00 23:00 Intake Total 1000 ml 240 ml Balance 1000 ml 240 ml Intake Oral 240 ml IV Total 1000 ml # Voids 1 Result Diagram: 05/25/17 0546 05/25/17 0546 Imaging Last Impressions Head CT 05/24/171921 Signed Impressions: Service Date/Time: Wednesday, May 24, 2017 19:39 - CONCLUSION: No acute intracranial abnormality is identified. Cali Ho MD Chest X-Ray 05/24/171921 Signed Impressions: Service Date/Time: Wednesday, May 24, 2017 20:00 - CONCLUSION: Marked underinflation with atelectasis at the bases. Otherwise, no acute finding is identified given the technique. Cali Ho MD Objective Remarks General: No acute distress. Heart: Regular rate and rhythm. No murmur. Lungs: Clear to auscultation bilaterally. No wheezes, rales, or rhonchi. Breathing is nonlabored. Abdomen: Soft, nontender, nondistended. Extremities: No lower extremity edema. Psych: Alert and oriented. Neuro: Cranial nerves 2-12 grossly intact. Porcelain Mixer strength 4+/5 on right, 5/5 on left. Procedures None Urinary Catheter: No Vascular Central Line Catheter: No A/P Problem List: (1) TIA (transient ischemic attack) ICD Code: G45.9 - Transient cerebral ischemic attack, unspecified Status: Acute (2) DAVE (acute kidney injury) ICD Code: N17.9 - Acute kidney failure, unspecified (3) DM (diabetes mellitus) ICD Code: E11.9 - Type 2 diabetes mellitus without complications Assessment and Plan 1. TIA: Weakness has improved. MRI shows no acute changes. Neurology consult is pending. Echocardiogram pending. 2. Acute kidney injury: Possible CKD. 3. Diabetes mellitus, poorly controlled: Start Levemir. Monitor Accu-checks and cover with sliding scale insulin. A1c pending. 4. DVT prophylaxis: Alicia/KAYLYNN olvera. Robles Grossman MD May 25, 2017 10:47
[2017-05-25] MEDS: INSULIN DETEMIR 100 UNITS/ML VIAL SQ SCH (11:32)
[2017-05-25 12:22] LABS: HEMOGLOBIN A1C 13.9 % (4.3-6.0)
--- NOTE | 2017-05-25 13:35 | ECHRPT ---
Indication: CVA/TIA CONCLUSIONS The left ventricular systolic function is low normal with an estimated ejection fraction in the rang e of 50- 55%. Wall thickness is normal. Normal left ventricular size. The pulmonary valve is not well visualized. BP: / HR: Rhythm: Sinus MEASUREMENTS (Male / Female) Normal Values Technical Quality:Technically difficult study 2D ECHO LV Diastolic Diameter PLAX 4.4 cm 4.2 - 5.9 / 3.9 - 5.3 cm LV Systolic Diameter PLAX 3.5 cm IVS Diastolic Thickness 0.9 cm 0.6 - 1.0 / 0.6 - 0.9 cm LVPW Diastolic Thickness 0.9 cm 0.6 - 1.0 / 0.6 - 0.9 cm LV Relative Wall Thickness 0.4 LVOT Diameter 2.7 cm M-MODE Aortic Root Diameter MM 3.3 cm LA Systolic Diameter MM 2.8 cm LA Ao Ratio MM 0.8 AV Cusp Separation MM 2.0 cm DOPPLER AV Peak Velocity 129.0 cm/s AV Peak Gradient 6.7 mmHg LVOT Peak Velocity 114.0 cm/s LVOT Peak Gradient 5.2 mmHg AV Area Cont Eq pk 5.1 cm Mitral E Point Velocity 63.7 cm/s Mitral A Point Velocity 67.6 cm/s Mitral E to A Ratio 0.9 LV E' Lateral Velocity 5.9 cm/s Mitral E to LV E' Lateral Ratio 10.7 LV E' Septal Velocity 7.0 cm/s Mitral E to LV E' Septal Ratio 9.1 FINDINGS LEFT VENTRICLE The left ventricular systolic function is low normal with an estimated ejection fraction in the rang e of 50- 55%. Wall thickness is normal. Normal left ventricular size. RIGHT VENTRICLE Normal right ventricular size and systolic function. LEFT ATRIUM The left atrial size is normal. RIGHT ATRIUM The right atrial size is normal. ATRIAL SEPTUM Normal atrial septal thickness without atrial level shunting by limited color doppler interrogation. AORTA The aortic root and proximal ascending aorta are normal in size on limited imaging. MITRAL VALVE Structurally normal mitral valve. No mitral valve stenosis or regurgitation. AORTIC VALVE Trileaflet aortic valve. No aortic valve stenosis or regurgitation. TRICUSPID VALVE Structurally normal tricuspid valve. No tricuspid valve stenosis or regurgitation. PULMONARY VALVE The pulmonary valve is not well visualized. VESSELS The inferior vena cava is normal in size. PERICARDIUM No pericardial effusion. Chris Peterson MD, FACC (Electronically Signed) Final Date:25 May 2017 13:34
--- NOTE | 2017-05-25 14:03 | MB ---
cc: BRENDA FISCHER M.D. DATE OF CONSULTATION: 05/25/2017. REASON FOR CONSULTATION: She is a 56-year-old seen in neurological consultation. HISTORY OF PRESENT ILLNESS: Yesterday she developed right-sided weakness. She was dropping objects on several occasions from her right hand. She does not think the leg was really involved. She is right-handed. There was no speech or language difficulty. PAST MEDICAL HISTORY: She has no significant medical history. MEDICATIONS: She takes no medications, no blood thinners. LABS: Her blood sugar was noted to be markedly elevated to 624. Sugar today down to 406. Basic chemistry normal except for creatinine 1.26 yesterday and 1.39 today. Calcium mildly elevated 10.6 today, hemoglobin A1c 13.9. CBC was normal. LDL was 90. IMAGING STUDIES: CT brain was negative for any acute abnormality and so was the MRI brain, which showed some microvascular disease. The MRA head was normal. NEUROLOGICAL EXAMINATION: The neurologic exam was completely normal. She was alert pleasant, oriented with reflexes being 1+ and plantar responses were flexor. Ocular movements and visual fair full. She had good strength throughout. ASSESSMENT: Presumed TIA right upper extremity transient symptoms, though these could be from neuropathic sources well. It is intriguing there that there was no speech or language dysfunction and no leg symptoms. Discussed with the admitting medicine team. We will obtain a carotid ultrasound, and if the study is unremarkable, then she could be just discharged on aspirin and perhaps a statin and be followed as outpatient neurologic-zamudio. Her blood sugar might have been a factor as well, and evidently this is a concern to be handled by the medicine team. Thank you for asking us to assist in her care. MD KODY Murphy/GLENN /1:48 PM /1:54 PM
--- NOTE | 2017-05-25 14:33 | RADRPT ---
EXAM DATE/TIME: 05/25/2017 14:01 [facility] COMPARISON: No previous studies available for comparison. INDICATIONS : Transient ischemic attack. MEDICAL HISTORY : Ectopic pregnacy. Diabetes. Anemia. SURGICAL HISTORY : Tubal ligation. section. ENCOUNTER: Initial ACUITY: 1 day PAIN SCORE: 0/10 LOCATION: Bilateral neck PEAK SYSTOLIC VELOCITIES (cm/sec): ICA/CCA RATIO: Right: 0.7 Left: 0.7 ICA: Right: 87 Left: 72 CCA: Right: 118 Left: 106 ECA: Right: 58 Left: 109 VERTEBRAL: Right: 57 antegrade Left: 78 antegrade Elevated flow velocities and ICA/CCA ratios have been found to correlate with increased degrees of vessel stenosis, calculated as percentage of diameter relative to a normal segment of distal ICA/CCA FINDINGS: RIGHT CAROTID: No significant stenosis is visualized. The waveforms are within normal limits. LEFT CAROTID: No significant stenosis is visualized. The waveforms are within normal limits. VERTEBRAL ARTERIES: Antegrade flow is seen in both vertebral arteries. MISCELLANEOUS: None. CONCLUSION: Normal examination for a patient of this age. Juan Baker MD on May 25, 2017 at 14:32 Board Certified Radiologist. This report was verified electronically.
[2017-05-25 15:15] VITALS: PULSE 73
[2017-05-25 16:00] VITALS: BP 104/61; PULSE 82; RESP 16; TEMP 98.3; O2SAT 97
[2017-05-25] MEDS ORDERED: ECASA81 PO (18:33)
[2017-05-25] MEDS ORDERED: LEVEMIR SQ (18:33)
[2017-05-25] MEDS ORDERED: PRAV40TA PO (18:33)
[2017-05-25 20:08] VITALS: BP 116/57; PULSE 80; RESP 18; TEMP 98.7; O2SAT 95
[2017-05-26] MEDS: SODIUM CHLOR 0.9% 1000 ML INJ 1,000 ML IV SCH (06:42)
[2017-05-26 07:07] VITALS: PULSE 69
[2017-05-26 07:55] VITALS: BP 115/59; PULSE 70; RESP 18; TEMP 98.4; O2SAT 96
[2017-05-26] MEDS: PRAVASTATIN SOD 40 MG TAB PO SCH (08:40)
[2017-05-26] MEDS: DOCUSATE SODIUM 50 MG/SENNA 8.6 MG TAB PO SCH (08:40)
[2017-05-26] MEDS: ASPIRIN EC 81 MG TABEC PO SCH (08:41)
[2017-05-26] MEDS: SODIUM CHLORIDE 0.9% FLUSH 10 ML FLUSH IV FLUSH SCH (08:41)
[2017-05-26] MEDS ORDERED: GLUCKIT15 (09:18)
[2017-05-26] MEDS ORDERED: INSU1MIS15 (09:18)
[2017-05-26] MEDS ORDERED: GLUCTES12 (09:18)
[2017-05-26] MEDS ORDERED: LANCETS1 MI1 (09:18)
[2017-05-26] MEDS: INSULIN ASPART SUPPLEMENTAL SCALE SQ SCH ×2 (09:21→12:00)
--- NOTE | 2017-05-26 09:21 | HHI.PR ---
Subjective Remarks Pt feels well and would like to go home. denies any CP/SOB/N/V/lightheadedness or dizziness. She denies any weakness. Pt is very insistent on going home. Objective Vitals Vital Signs Date Time Temp Pulse Resp B/P (MAP) Pulse Ox O2 Delivery O2 Flow Rate FiO2 05/26/17 07:55 98.4 70 18 115/59 (77) 96 05/26/17 07:07 69 05/25/17 20:08 98.7 80 18 116/57 (76) 95 05/25/17 16:00 98.3 82 16 104/61 (75) 97 05/25/17 15:15 73 I/O 05/25/17 05/25/17 05/25/17 05/26/17 05/26/17 05/26/17 07:00 15:00 23:00 07:00 15:00 23:00 Intake Total 240 ml Balance 240 ml Intake Oral 240 ml # Voids 1 Result Diagram: 05/25/17 0546 05/25/17 0546 Imaging Last Impressions Head Magnetic Resonance Angiography 05/25/17 0000 Signed Impressions: Service Date/Time: Thursday, May 25, 2017 09:12 - CONCLUSION: Negative MRA. Cali Silvestre MD Carotid Artery Ultrasound 05/25/17 0000 Signed Impressions: Service Date/Time: Thursday, May 25, 2017 14:01 - CONCLUSION: Normal examination for a patient of this age. Juan Baker MD Brain MRI 05/25/17 0000 Signed Impressions: Service Date/Time: Thursday, May 25, 2017 09:12 - CONCLUSION: 1. No acute intracranial abnormalities seen. 2. There are few scattered areas of focal demyelination. These are nonspecific. It could be secondary to small vessel ischemic change versus other demyelinating conditions. Cali Silvestre MD Head CT 05/24/171921 Signed Impressions: Service Date/Time: Wednesday, May 24, 2017 19:39 - CONCLUSION: No acute intracranial abnormality is identified. Cali Ho MD Chest X-Ray 05/24/171921 Signed Impressions: Service Date/Time: Wednesday, May 24, 2017 20:00 - CONCLUSION: Marked underinflation with atelectasis at the bases. Otherwise, no acute finding is identified given the technique. Cali Ho MD Objective Remarks General: No acute distress. Heart: Regular rate and rhythm. No murmur. Lungs: Clear to auscultation bilaterally. No wheezes. Breathing is nonlabored. Abdomen: Soft, nontender, nondistended. Extremities/ NEURO: No lower extremity edema. Moves her extremities. Answers questions appropriately. Psych: Alert and oriented. Procedures None A/P Problem List: (1) TIA (transient ischemic attack) ICD Code: G45.9 - Transient cerebral ischemic attack, unspecified Status: Acute (2) DAVE (acute kidney injury) ICD Code: N17.9 - Acute kidney failure, unspecified (3) DM (diabetes mellitus) ICD Code: E11.9 - Type 2 diabetes mellitus without complications Assessment and Plan 1. TIA: Weakness has improved/resolved. MRI shows no acute changes. Head MRA neg. Neurology evaluated the patient and has cleared pt if carotid u/s neg. Echocardiogram shows EF 50-55%. Carotid u/s neg for stenosis. 2. Acute kidney injury: Possible CKD. However trending up. Will check Stat BMP at this time. Pt instructed to make an appt w a PCP. Currently on NS@100ml/hr 3. Diabetes mellitus, poorly controlled: on Levemir 10 units daily, may need to adjust prior to d/c . Monitor Accu-checks and cover with sliding scale insulin. A1c 13.9. Last visit to PCP was in 2010 and apparently pt had lost weight and DM was controlled and per pt she was taken off all her meds. Pt hasn't been on meds since. She is new to insulin. process safety specialist has been consulted, in the event she cannot see one prior to d/c she will need to f/u as an outpatient. 4. DVT prophylaxis: SCDs/KAYLYNN olvera. Discharge Planning awaiting BMP Mari Sheikh MD May 26, 2017 09:21
[2017-05-26] MEDS: INSULIN DETEMIR 100 UNITS/ML VIAL SQ SCH (09:22)
[2017-05-26 11:07] LABS: BICARBONATE 28.6 MEQ/L (21.0-32.0); CALCIUM 8.4 MG/DL (8.5-10.1); CREATININE 0.77 MG/DL (0.50-1.00)
[2017-05-26 11:42] VITALS: BP 113/63; PULSE 75; RESP 16; TEMP 98.4; O2SAT 96
[2017-05-26] MEDS ORDERED: LEVEMIR SQ (12:33)
[2017-05-26] MEDS ORDERED: NOVOLOGP2 SQ (12:33)
== END 2017-05-26 13:59 | disposition home or self-care (01) | DRG 69 ==
LOC: NEPC 18:22 → NEDA 23:24 → NEPGCP 05-25 04:03 → OBSVTOIN 05-25 12:45
PROVIDERS: ADMIT Hospitalist; ATTEND Hospitalist
DX: G45.9 Transient cerebral ischemic attack, unspecified (principal); N17.9 Acute kidney failure, unspecified; E11.65 Type 2 diabetes mellitus with hyperglycemia
CPT/HCPCS: 70450; 70544; 70551; 71045; 80048; 80053; 80061; 81001; 82550; 82552; 82948; 83036; 83735; 84443; 84484; 85025; 85610; 85730; 93005; 93306; 93880; 96361; 96374; 96375; G0378; G8987-GP; G8988-GP; J1815; J2405; J7030